=== PATIENT | male | born 1995 | race Asian ===

== ENCOUNTER 2021-04-05 06:34 | Emergency (ER) | payer SELFPAY ==
[~2021-04-05] VITALS: Ht 175.3 cm; Wt 63.5 kg
[2021-04-05 06:40] VITALS: BP_SYST 130
--- NOTE | 2021-04-05 06:40 | NUR ---
Patient triaged and placed in waiting room. VSS and patient appears in no acute distress at this time. Accompanied by GIRLFRIEND, awaiting available bed, and MD notified of need for MSE.
--- NOTE | 2021-04-05 06:55 | NUR ---
ER Dr. HICKS at bedside examining patient.
[2021-04-05] MEDS ORDERED: ACETAMINOPHEN 325 MG TABLET PO ONE (07:00)
--- NOTE | 2021-04-05 07:00 | NUR ---
PATIENT AAOX4 AND AMBULATORY C/O HEADACHE, CONGESTION, SORE THROAT THAT STARTED TODAY. DENIES ANY N/V/D, CP, SOB. CURRENTLY STATIG 3/10 ON THE PAIN SCALE. DENIES TAKING MEDICATION AT HOME FOR SYMPTOMS. DENIES BLURRED VISION. RECENTLY RECEIVED COVID VACCINE ABOUT 1 WEEK AGO.
--- NOTE | 2021-04-05 07:03 | NUR ---
PCR AND FLU SWAB COLLECTED AND SENT TO LAB FOR ANALYSIS.
--- NOTE | 2021-04-05 07:10 | NUR ---
pt eloped and left without discharge paperwork. vss. denied any pain at this time. results pending.
== END 2021-04-05 07:10 | disposition left against medical advice (07) ==
LOC: SED 06:34
DX: B34.9 Viral infection, unspecified (principal)
CPT/HCPCS: 36415; 86710; 99283